=== PATIENT | female | born 1940 | race Caucasian/White ===

== ENCOUNTER 2020-12-27 12:21 | Outpatient (CLI) | payer MEDICARE, OTHER | END 2020-12-27 23:59 | disposition home or self-care (01) | LOC: VAS 12:21 | PROVIDERS: ATTEND Radiology Diagnostic Radiology | DX: M71.21 Synovial cyst of popliteal space [Baker], right knee (principal) | CPT/HCPCS: 93971 ==

== ENCOUNTER 2021-11-17 12:00 | Outpatient (CLI) | payer MEDICARE, OTHER ==
[~2021-11-17] VITALS: Ht 154.9 cm; Wt 75.3 kg
[2021-11-17] MEDS ORDERED: DOXY40CP PO (12:02)
[2021-11-17] MEDS ORDERED: FLUT1DIS INH (12:02)
[2021-11-17] MEDS ORDERED: HYDR12.55 PO (12:02)
[2021-11-17] MEDS ORDERED: LEVO125T PO (12:02)
[2021-11-17] MEDS ORDERED: LOSA50TA64 PO (12:02)
[2021-11-17] MEDS ORDERED: ASPI-1265 PO (12:02)
[2021-11-17] MEDS ORDERED: ESOM20CA PO (12:04)
[2021-11-17] MEDS ORDERED: CALC-1099 PO (12:04)
[2021-11-17] MEDS ORDERED: MAGN400C PO (12:04)
[2021-11-17] MEDS ORDERED: CHOL2400 (12:04)
[2021-11-17] MEDS ORDERED: ZINC50TA67 PO (12:04)
[2021-11-17 12:28] LABS: BASOPHILS % (AUTO) 0.6 % (0-1); EOSINOPHILS # (AUTO) 0.3 X10'3 (0-0.9); LYMPHOCYTES # (AUTO) 1.3 X10'3 (1.1-4.8); LYMPHOCYTES % (AUTO) 16.7 % (21-51); MEAN CORPUSCULAR HEMOGLOBIN 30.6 PG (27.0-31.0); MEAN CORPUSCULAR HGB CONC 33.3 g/dL (33.0-36.5); MEAN PLATELET VOLUME 8.4 FL (7.4-10.4); MONOCYTES # (AUTO) 0.8 X10'3 (0-0.9); MONOCYTES % (AUTO) 9.8 % (2-12); NEUTROPHILS # (AUTO) 5.5 X10'3 (1.8-7.7); NEUTROPHILS % (AUTO) 68.9 % (42-75); PRE OP HEMATOCRIT 40.2 % (35.0-45.0); PRE OP HEMOGLOBIN 13.4 g/dL (12.0-16.0); PRE OP PLATELET COUNT 300 X10'3 (140-440); RED BLOOD COUNT 4.38 X10'6 (4.20-5.60); RED CELL DISTRIBUTION WIDTH 14.4 % (11.5-14.5)
[2021-11-17 12:44] LABS: ALBUMIN 3.6 G/DL (3.4-5.0); ALBUMIN/GLOBULIN RATIO 0.8 (1.1-1.5); ALKALINE PHOSPHATASE 84 IU/L (46-116); BLOOD UREA NITROGEN 20 MG/DL (7-18); CHLORIDE 102 MMOL/L (99-107); CREATININE 0.87 MG/DL (0.40-0.90); PRE OP ALT 21 U/L (30-65); PRE OP ANION GAP 7 (8-16); PRE OP AST 14 U/L (10-37); PRE OP BILIRUB, TOTAL 0.3 MG/DL (0.0-1.0); PRE OP GLUCOSE 101 MG/DL (70-104); PRE OP POTASSIUM 3.9 MMOL/L (3.4-5.1); PRE OP SODIUM 137 MMOL/L (135-145); TOTAL CARBON DIOXIDE 27.8 MMOL/L (24-32); TOTAL PROTEIN 7.9 G/DL (6.4-8.2); eGFR 62 ML/MIN
[2021-11-24] MEDS ORDERED: famotidine 20mg tablet PO ONE (06:00)
[2021-11-24] MEDS ORDERED: cefazolin/dext.iso 2gm/50ml IV ONE (06:00)
[2021-11-24] MEDS ORDERED: ringers solution, lacted 1,000 ML IV SCH (06:00)
== END 2021-11-17 23:59 | disposition home or self-care (01) ==
LOC: PRE-OP 12:00 → EDSTATUS 11-24 08:15
PROVIDERS: ATTEND Orthopaedic Surgery Hand Surgery
DX: Z01.818 Encounter for other preprocedural examination (principal); M67.441 Ganglion, right hand; G56.01 Carpal tunnel syndrome, right upper limb; M17.11 Unilateral primary osteoarthritis, right knee; I10 Essential (primary) hypertension; E03.9 Hypothyroidism, unspecified; J44.9 Chronic obstructive pulmonary disease, unspecified; M81.0 Age-related osteoporosis without current pathological fracture; K21.9 Gastro-esophageal reflux disease without esophagitis; G43.909 Migraine, unspecified, not intractable, without status migrainosus; Z20.822 Contact with and (suspected) exposure to COVID-19; Z79.899 Other long term (current) drug therapy; Z79.82 Long term (current) use of aspirin; Z90.710 Acquired absence of both cervix and uterus; Z98.890 Other specified postprocedural states; Z87.891 Personal history of nicotine dependence; Z72.89 Other problems related to lifestyle
CPT/HCPCS: 36415; 80053; 85025; 93005; U0003; U0005; J0690; J7120

== ENCOUNTER 2021-12-11 08:07 | Day surgery (SDC) | payer MEDICARE, OTHER ==
[2021-12-05 12:40] LABS: BASOPHILS % (AUTO) 0.5 % (0-1); EOSINOPHILS # (AUTO) 0.3 X10'3 (0-0.9); EOSINOPHILS % (AUTO) 3.7 % (0-6); LYMPHOCYTES # (AUTO) 1.2 X10'3 (1.1-4.8); LYMPHOCYTES % (AUTO) 16.1 % (21-51); MEAN CORPUSCULAR HGB CONC 33.7 g/dL (33.0-36.5); MEAN PLATELET VOLUME 8.6 FL (7.4-10.4); MONOCYTES # (AUTO) 0.7 X10'3 (0-0.9); MONOCYTES % (AUTO) 9.1 % (2-12); NEUTROPHILS # (AUTO) 5.3 X10'3 (1.8-7.7); NEUTROPHILS % (AUTO) 70.6 % (42-75); PRE OP HEMATOCRIT 39.7 % (35.0-45.0); PRE OP HEMOGLOBIN 13.4 g/dL (12.0-16.0); PRE OP PLATELET COUNT 295 X10'3 (140-440); RED BLOOD COUNT 4.32 X10'6 (4.20-5.60); RED CELL DISTRIBUTION WIDTH 14.5 % (11.5-14.5)
[2021-12-05 13:03] LABS: ALBUMIN 3.5 G/DL (3.4-5.0); ALKALINE PHOSPHATASE 79 IU/L (46-116); BLOOD UREA NITROGEN 17 MG/DL (7-18); CALCIUM 9.2 MG/DL (8.5-10.1); CHLORIDE 107 MMOL/L (99-107); CREATININE 0.81 MG/DL (0.40-0.90); PRE OP ALT 20 U/L (30-65); PRE OP ANION GAP 7 (8-16); PRE OP AST 15 U/L (10-37); PRE OP BILIRUB, TOTAL 0.4 MG/DL (0.0-1.0); PRE OP GLUCOSE 102 MG/DL (70-104); PRE OP POTASSIUM 4.2 MMOL/L (3.4-5.1); PRE OP SODIUM 142 MMOL/L (135-145); TOTAL CARBON DIOXIDE 28.3 MMOL/L (24-32); eGFR 68 ML/MIN
[~2021-12-11] VITALS: Ht 154.9 cm; Wt 75.3 kg
[~2021-12-11 08:07] MED LIST: ASPI-1265 PO; BUPIVAcaine 0.5% inj/PF 30 ML ONE; CALC-1099 PO; CHOL2400; DOXY40CP PO; ESOM20CA PO; FLUT1DIS INH; HYDR12.55 PO; LEVO125T PO; LOSA50TA64 PO; MAGN400C PO; ZINC50TA67 PO; cefazolin/dext.iso 2gm/50ml IV ONE; famotidine 20mg tablet PO ONE; ringers solution, lacted 1,000 ML IV SCH
[2021-12-11 08:30] VITALS: BP 138/77
[2021-12-11] MEDS ORDERED: midazolam 1 mg/ML 2ml injection ONE (10:34)
[2021-12-11] MEDS ORDERED: fentaNYL/PF 50MCG/1 ML 2ML syringe ONE (10:34)
[2021-12-11] MEDS ORDERED: BUPIVAcaine 0.5% inj/PF 30 ml vial IJ ONE (10:58)
[2021-12-11 11:09] VITALS: BP 133/80
--- NOTE | 2021-12-11 11:09 | NUR ---
Received from OR via , accompanied by Anesthesiologist DR COOK and report given by Anesthesiolgist. AWAKENS TO VOICE. VITALS STABLE. DRESSING DI. NASH PAIN. FINGERS WARM AND PINK.
[2021-12-11 11:19] VITALS: BP 116/75
[2021-12-11 11:29] VITALS: BP 132/80
[2021-12-11 11:39] VITALS: BP 128/77
--- NOTE | 2021-12-11 11:49 | NUR ---
AWAKE AND ORIENTED. VITALS STABLE. DRESSINGS DI. NASH PAIN. HOME WITH A FRIEND AT THIS TIME.
== END 2021-12-11 11:49 | disposition home or self-care (01) ==
LOC: PAS 08:07
PROVIDERS: ATTEND Orthopaedic Surgery Hand Surgery
DX: G56.01 Carpal tunnel syndrome, right upper limb (principal); D21.11 Benign neoplasm of connective and other soft tissue of right upper limb, including shoulder; B07.8 Other viral warts; M17.11 Unilateral primary osteoarthritis, right knee; I10 Essential (primary) hypertension; E03.9 Hypothyroidism, unspecified; M81.0 Age-related osteoporosis without current pathological fracture; J44.9 Chronic obstructive pulmonary disease, unspecified; G43.909 Migraine, unspecified, not intractable, without status migrainosus; Z79.899 Other long term (current) drug therapy; Z79.82 Long term (current) use of aspirin; Z90.710 Acquired absence of both cervix and uterus; Z98.890 Other specified postprocedural states; Z87.891 Personal history of nicotine dependence; Z72.89 Other problems related to lifestyle; Z86.11 Personal history of tuberculosis; Z20.822 Contact with and (suspected) exposure to COVID-19
CPT/HCPCS: 26116; 36415; 64721; 80053; 82948; 85025; J0690; J2250; J3010; J7030; J7120; S0020; U0003; U0005; Z7506; Z7512; A4215

== ENCOUNTER 2021-12-20 10:25 | Outpatient (CLI) | payer MEDICARE, OTHER ==
[~2021-12-20 10:25] MED LIST changes: -BUPIVAcaine 0.5% inj/PF 30 ML ONE; -cefazolin/dext.iso 2gm/50ml IV ONE; -famotidine 20mg tablet PO ONE; -ringers solution, lacted 1,000 ML IV SCH
== END 2021-12-20 23:59 | disposition home or self-care (01) ==
LOC: VAS 10:25
PROVIDERS: ATTEND Family Medicine Sports Medicine
DX: M71.21 Synovial cyst of popliteal space [Baker], right knee (principal); M17.11 Unilateral primary osteoarthritis, right knee
CPT/HCPCS: 93971

== ENCOUNTER 2025-07-02 11:20 | Outpatient (CLI) | payer MEDICARE, OTHER ==
--- NOTE | 2025-07-02 14:10 | RADIOLOGY REPORT ---
CLINICAL INDICATION: Vascular dementia without behavioral disturbance. Hypothyroidism. COMPARISON: None TECHNIQUE: Multisequence multiplanar MRI images of the brain were obtained prior to and after the une ventful administration of 10 mL Clariscan contrast. Smaller [id number] pre and postcontrast Images of the sella/pituitary were also obtained. FINDINGS: No acute infarct or hemorrhage. No mass or midline shift. Marked areas of T2/FLAIR hyperin tense signal in the periventricular and subcortical white matter are nonspecific, but most likely seq uelae of chronic small vessel ischemic disease. No abnormal parenchymal or meningeal enhancement. Karan tricles and sulci are within normal limits. Basal cisterns are patent. Cerebellum, brainstem, and mid line structures are within normal limits. Mild mucosal thickening of the paranasal sinuses. There are bilateral lens prostheses. Orbits are otherwise grossly unremarkable. Pituitary gland is normal in size, measuring up to 0.5 cm in craniocaudal dimension. Infundibulum and optic chiasm appear unremarkable. There is homogeneous enhancement of the pituitary gland on single phase postcontrast images. No hypo enhancing mass visualized. Otherwise, no sellar or suprasellar ma ss demonstrated on this exam. IMPRESSION: 1. No evidence of acute intracranial abnormality. 2. No mass or abnormal postcontrast enhancement. 3. No sellar or suprasellar mass demonstrated on this exam. Homogeneous postcontrast enhancement of t he pituitary gland on the single phase postcontrast images. 4. Nonacute findings as described above.
[2025-07-02] MEDS ORDERED: GADOTERATE MEGLUMINE 7.5 MMOL/15 ML VIAL IV ONE (16:01)
== END 2025-07-02 23:59 | disposition home or self-care (01) ==
LOC: MRI 11:20
PROVIDERS: ATTEND Nurse Practitioner Family
DX: F01.50 Vascular dementia, unspecified severity, without behavioral disturbance, psychotic disturbance, mood disturbance, and anxiety (principal); J34.89 Other specified disorders of nose and nasal sinuses; R40.4 Transient alteration of awareness; R89.9 Unspecified abnormal finding in specimens from other organs, systems and tissues; R41.89 Other symptoms and signs involving cognitive functions and awareness; E03.9 Hypothyroidism, unspecified
CPT/HCPCS: 70553; A9575

== ENCOUNTER 2025-08-03 11:32 | Outpatient (CLI) | payer MEDICARE, OTHER ==
[2025-08-03 12:30] LABS: CREATININE 0.81 MG/DL (0.40-0.90); TOTAL CARBON DIOXIDE 28.8 MMOL/L (24-32); eGFR 67 ML/MIN
== END 2025-08-03 23:59 | disposition home or self-care (01) ==
LOC: RAD 11:32
PROVIDERS: ATTEND Nurse Practitioner Family
DX: R40.4 Transient alteration of awareness (principal); R79.89 Other specified abnormal findings of blood chemistry; E03.9 Hypothyroidism, unspecified; F01.50 Vascular dementia, unspecified severity, without behavioral disturbance, psychotic disturbance, mood disturbance, and anxiety; R89.9 Unspecified abnormal finding in specimens from other organs, systems and tissues
CPT/HCPCS: 36415; 80053; 82607; 82746; 83970; 84425; 84439; 84443